=== PATIENT | female | born 1995 | race Two or more races ===

== ENCOUNTER 2023-03-16 07:02 | Outpatient (CLI) | payer BC, SELFPAY ==
--- NOTE | 2023-03-16 07:15 | CRLHL7_ITS ---
For Patients: As a result of the Century Cures Act, medical imaging exams and procedure reports are released immediately into your electronic medical record. You may view this report before your referring provider. If you have questions, please contact your health care provider. INDICATION: First trimester scan, establish dates. COMPARISON: None. TECHNIQUE: Real-time lopez-scale imaging of the pelvis was performed. FINDINGS: Sonographic imaging demonstrates a single living intrauterine gestation. The embryo demonstrates a regular cardiac rate measuring 126 beats per minute. The embryo`s crown-rump length measurement of 0.6 cm corresponds to a gestational age of 6 weeks 3 days with a sonographic due date of 11/06/2023. There is a normal-appearing yolk sac. There are no gross abnormalities noted within the embryo at this early state of development. The gestational sac has a normal appearance. There is no evidence of a perigestational hemorrhage. The amount of fluid within the sac appears appropriate for gestational age. The cervix is closed. The myometrium appears normal. Corpus luteal cyst right ovary. Nonvisualization left ovary. There are no suspicious fluid collections noted in the cul-de-sac. IMPRESSION: Single living intrauterine with sonographic gestational age 6 weeks 3 days and sonographic due date 11/06/2023. Dictated by Cody Lloyd MD @ 03/16/2023 2:06:01 PM (Electronically Signed)
== END 2023-03-16 07:03 | disposition home or self-care (01) ==
PROVIDERS: Visit Provider Physician Assistant
DX: Z34.91 Encounter for supervision of normal pregnancy, unspecified, first trimester (principal); Z3A.01 Less than 8 weeks gestation of pregnancy
CPT/HCPCS: 76817; 86592; 86703; 86762; 86787; 86803; 86850; 86900; 86901; 87086; 87340; 87491; 87591

== ENCOUNTER 2023-03-16 10:04 | Outpatient (CLI) | payer BC, SELFPAY ==
[2023-03-16 13:30] LABS: Chlamydia DNA Amplified* NOT DETECTED (No Detected); GC DNA Amplified* NOT DETECTED (No Detected)
== END 2023-03-16 10:05 | disposition home or self-care (01) ==
PROVIDERS: Visit Provider Physician Assistant
DX: Z34.91 Encounter for supervision of normal pregnancy, unspecified, first trimester (principal); Z3A.01 Less than 8 weeks gestation of pregnancy
CPT/HCPCS: 86592; 86703; 86762; 86787; 86803; 86850; 86900; 86901; 87086; 87340; 87491; 87591

== ENCOUNTER 2023-06-19 13:57 | Outpatient (CLI) | payer BC, SELFPAY ==
--- NOTE | 2023-06-19 14:00 | CRLHL7_ITS ---
For Patients: As a result of the Century Cures Act, medical imaging exams and procedure reports are released immediately into your electronic medical record. You may view this report before your referring provider. If you have questions, please contact your health care provider. INDICATION: Evaluate anatomy. COMPARISON: none TECHNIQUE: Real time lopez scale imaging of the fetus was performed as well as color Doppler analysis of the umbilical vessels. FINDINGS: Sonographic imaging demonstrates a single living intrauterine gestation. Fetus demonstrates a regular cardiac rate of 138 beats per minute. Fetus has a vertex position. The placenta lies along the right wall without evidence of placenta previa. The edge of the placenta is located 10.4 cm from the internal cervical os. Amniotic fluid volume appears normal. Single deepest vertical pocket: 5.0 cm. The cervix is closed and measures 3.9 cm in length. The composite ultrasound gestational age is calculated at 20 weeks 1 day with an estimated sonographic due date of 11/05/2023. The estimated weight is 326 grams which lies at the 45th %. The following biometric measurements were obtained: Biparietal diameter: 4.7 cm/20 weeks 2 days 61st% Head circumference: 17.4 cm/19 weeks 6 days 38th% Abdominal circumference: 15.0 cm/20 weeks 1 day 51st% Femur length: 3.1 cm/19 weeks 5 days 33rd% The HC/AC ratio measures: 1.16 range (1.07-1.25) On anatomic survey, there is a normal appearance of the cavum septi pellucidi, cisterna magna and cerebellum. Right choroid plexus cyst measuring 9 x 5 millimeters. The nose, lips, and facial profile appear normal. The cervical, thoracic and lumbar spine are well visualized and appear normal. There is a normal four-chamber heart view and the left and right ventricular outflow tracts appear normal. The diaphragm and stomach appear normal. Bilateral renal pelviectasis measuring 6.2 millimeters on the right and 5.6 millimeters on the left. Normal bladder. There is a normal three-vessel cord and cord insertion site. The four extremities appear normal. IMPRESSION: Right choroid plexus cyst measuring 9 x 5 millimeters. Bilateral renal pelviectasis measuring 6.2 millimeters on the right and 5.6 millimeters on the left. Remainder of the anatomic survey normal. Level 2 ultrasound recommended. Sonographic gestational age 20 weeks 1 day and sonographic due date 11/05/2023. Good correlation with dates. Estimated weight 45th percentile. Abdominal circumference 51st percentile. Dictated by Cody Lloyd MD @ 06/20/2023 10:37:31 AM (Electronically Signed)
== END 2023-06-19 13:58 | disposition home or self-care (01) ==
LOC: US 14:00
PROVIDERS: Visit Provider Obstetrics & Gynecology
DX: Z34.92 Encounter for supervision of normal pregnancy, unspecified, second trimester (principal); O35.03X0 Maternal care for (suspected) central nervous system malformation or damage in fetus, choroid plexus cysts, not applicable or unspecified; Z3A.20 20 weeks gestation of pregnancy
CPT/HCPCS: 76805

== ENCOUNTER 2023-08-17 15:01 | Outpatient (CLI) | payer BC, SELFPAY | END 2023-08-17 15:02 | disposition home or self-care (01) | LOC: NFLDREF 08-21 03:17 | PROVIDERS: Visit Provider Advanced Practice Midwife | DX: Z34.91 Encounter for supervision of normal pregnancy, unspecified, first trimester (principal) | CPT/HCPCS: 86592 ==

== ENCOUNTER 2023-10-10 18:12 | Outpatient (CLI) | payer BC, SELFPAY ==
[2023-10-11 15:23] LABS: Strep B DNA Probe Negative (Negative)
[2023-10-11 15:24] LABS: Strep B Susceptibility Needed? No
--- NOTE | 2023-11-06 21:39 | PC.NURSE ---
Center telephone call greater than 37 weeks Date of call: [11/06/23] Time of call: [2144] Name of person calling: [Adalgisa and SO] Best phone # to reach you at: [[phone]] patient: G: [1] P: [0] EDC: [11/06/23] Gestational age: [40.0] weeks Provider: [Cas Byrne CNM] Reason for calling (patient's words): [My water broke, I am not brayden yet. I am GBS negative.] Declines bleeding. Endorses movement. Fluid was clear. Evelyn Byrne next to scientific technical writer while taking phone call. Per Chavez, pt can stay home for 12 hours post SROM since she is GBS negative. Pt instructed to call and come in if vaginal bleeding or decreased movement. Advised patient on labor coping at home and instructed patient to call and come in when contractions are q 5 min for 1 hour or sooner. Patient aware she is welcome to come in at anytime overnight. Instructed patient to call 11/07/23 at 0700 if she does not come in overnight to update the unit on her status of labor and make a plan. If patient is calling with the following complaints, instructed to come to Center for evaluation: Feels like water broke: [Y] Regular contractions that are 5 min apart: [N] Bleeding that is bright red and similar to a menstrual period: [N] Decreased movement: [N] Temp >100.4: [NN] Patient has a sense that something doesn't feel right: [] Is patient having contractions: [N] Reviewed Signs of Labor: Uterine tightening or cramping that occurs at regular intervals. These typically occur at shorter and shorter intervals and may increase in intensity with time. Unlike [place] contractions, changes in activity should not make these symptoms go away. With true labor, the time between contractions will gradually shorten and the intensity gradually increases. Typical recommendation is coming to the hospital when contractions occur every 5 minutes or less and last for 60 seconds or more for 1 hour. If patient chooses to stay home, patient given comfort instructions and informed if symptoms stay the same or are worse after 1 hour come to Center. Comfort measures: Lie on left side, reset, drink bottle or large cup of water, monitor contractions for 1 hour. Patient verbalized understanding?: [Y] Is patient coming for evaluation?: [N] Telephone conversation guided by approved policy and flow chart, Telephone Calls From Patient's, approved at [facility] perinatology Committee May 2023.
== END 2023-10-10 18:13 | disposition home or self-care (01) ==
LOC: NFLDREF 18:12
PROVIDERS: PCP Advanced Practice Midwife; Visit Provider Advanced Practice Midwife
DX: Z34.03 Encounter for supervision of normal first pregnancy, third trimester (principal); Z3A.36 36 weeks gestation of pregnancy
CPT/HCPCS: 87081; 87653

== ENCOUNTER 2023-11-07 05:35 | Inpatient (IN) | payer BC, SELFPAY ==
[2023-11-07] VITALS (21 sets, daily range): BP systolic 123–133; BP diastolic 60–81; PULSE 65–80; RESP 16–17; TEMP 36.6–37; O2SAT 99; BMI 42.7
--- NOTE | 2023-11-07 05:08 | PM.OBLDTN ---
OB - Triage/Final Diagnosis Visit Information Time Seen by Provider: 05:09 Date Seen: 11/07/23 Narrative: The patient is a 28 year old 1 para 0 at 40.1 weeks gestation by , who presents with . Evaluation Vital signs: Vital Signs - 24 hr 11/07/23 04:17 11/07/23 04:18 Pulse Rate 67 Blood Pressure 129/81 Pulse Oximetry 99 Fetus (Infant B) Heart Rate Baseline: 155
[2023-11-07 05:36] LABS: Amnisure Rom* POSITIVE
--- NOTE | 2023-11-07 06:02 | P.LDBA_ITS ---
Documented by User: Evelyn Byrne CNM 11/07/23 07:42 Subjective History of Present Illness Narrative: Patient is being admitted to Labor and Delivery for []. She is a 28 year old at weeks gestation. Her full history and physical was dictated by [] on []. Please see this for details. [] Specific Issues/Plans G1 Pronounced No-sheryl H&P done by Sumit Eller CNM on 10/17/23 1. Obesity, pre BMI 37.3 Aspirin 81 mg Consider BPP/NST starting at 37 weeks, declined at this time 2. History of genital herpes is on suppressive Valtrex 500 daily. Increase to treatment dose at 36 weeks, script sent 3. History of abnormal Paps. Reports last Pap 09/30/2022: [facility]. 2020: [facility] .Reports paps have been abnormal since 2013. Transferred records show paps in 2017 and 2018, both [facility]. No report of colposcopy. Pap with HPV 04/21/23: NIL, HPV positive, not 16 or 18 subtypes. Colposcopy 05/17/23: suspect metaplasia. Repeat pap with HPV testing . 4. Bilateral urinary tract dilation, RESOLVED 09/12/2023 right 4.4mm, left 4.3mm, Level II US repeat US at 32 weeks: EFW 46%ile, UTD resolved, succenturiate lobe noted 5. Non immune rubella status MMR 6. Bi-loped (Succenturiate) reported from [facility] 09/12/2023 Right lateral per notes Flu: Declines Covid booster: declines RSV: 09/14 TDAP:09/01 OB - Problem Based A/P Additional Plan (1) PROM (premature rupture of membranes): Status: Acute (2) Bilobate placenta, antepartum: Status: Acute (3) pyelectasis: Problem details: Bilateral Status: Acute Plan ASSESSMENT:? 28 yr old at 40.1 weeks gestation? complicated by:? pyelectasis, resolve; rubella non-immune, hx of genital herpes on suppression, obesity Labor type:Spontaneous, Early labor? Category 1 FHR pattern.?? Labor complicated by: PROM, bilobed placenta ? GBS negative ? PLAN:? 1. Routine intrapartum cares as ordered. Continue with expectant management. Reviewed option of augmentation with pitocin or cytotec versus expectant management until 12 hours, then reassess. Reviewed risks/benefits of these options. Questions answered. 2. Monitoring per policy, continuous or intermittent? 3. Planning unmedicated . Desires water . Consent signed. Hep C negative. Candidate for analgesia of choice.?? 4. Patient encouraged to reposition and ambulate to promote physiologic labor and .? 5. Anticipate ? I,?Evelyn Byrne APRN, CNM, was present for visit and have reviewed and agree with documentation by the Certified Nurse Midwifery Student. OB Exam Physical Exam Vital signs: Pulse BP Pulse Ox 67 129/81 99 11/07/23 04:18 11/07/23 04:18 11/07/23 04:17 Narrative: Vitals Reviewed Constitutional:? Alert and oriented x3 HEENT:? Normocephalic, atraumatic Neck:? Supple Lungs:? Clear to auscultation bilaterally Heart:? Regular rate and rhythm, no murmur, rub or gallop Abdomen:? Soft, nontender, and gravid. Vertex by Michael's, confirmed with cervical exam. Extremities:? No edema or erythema Cervix: 2 cm/70%/-3 station/vertex NST: 120 bpm/minimal to moderate variability/15x15 accelerations/absent decelerations/contractions every 1-4 minutes Detailed Labor and Delivery Exam Patient Gravid: Yes Documented by User: Jodie Lorenzana 11/07/23 07:16 Subjective History of Present Illness Narrative: Patient is being admitted to Labor and Delivery for spontaneous rupture of membr ane at home on 11/06/2020 @ 2145. She is a 28 year old at 40.1 weeks gestation. Her full history and physical was dictated by Sumit Llanos CNM on 10/17/2023. Please see this for details. Pt called labor and delivery earlier to report of her rupture and felt comfortable staying at home till she started to feel regular painful contraction. At 0400 this morning pt called to report she was coming in to be evaluated for slowly increasing contractions. On admission, She had copious leakage of clear fluid. AMNISURE was collected to confirm rupture of membrane. Her contractions were 1-4 min apart on TOCO and palpated mild. FHT were minimal, with acceleration noted only during vaginal exam. FHT - reactive after intake of juice and food. She denied vaginal bleeding and decreased movements. GBS negative and plans on having water . Pt made an informed choice for 12 hours of expectant management before labor augmentation. Specific Issues/Plans G1 Pronounced No-sheryl H&P done by Sumit Eller CNM on 10/17/23 1. Obesity, pre BMI 37.3 Aspirin 81 mg Consider BPP/NST starting at 37 weeks, declined at this time 2. History of genital herpes is on suppressive Valtrex 500 daily. Increase to treatment dose at 36 weeks, script sent 3. History of abnormal Paps. Reports last Pap 09/30/2022: [facility]. 2020: [facility] .Re ports paps have been abnormal since 2014. Transferred records show paps in 2017 and 2019, both [facility]. No report of colposcopy. Pap with HPV 04/21/23: NIL, HPV positive, not 16 or 18 subtypes. Colposcopy 05/17/23: suspect metaplasia. Repeat pap with HPV testing . 4. Bilateral urinary tract dilation, RESOLVED 09/12/2023 right 4.4mm, left 4.3mm, Level II US repeat US at 32 weeks: EFW 46%ile, UTD resolved, succenturiate lobe noted 5. Non immune rubella status MMR 6. Bi-loped (Succenturiate) reported from [facility] 09/12/2023 Right lateral per notes Flu: Declines Covid booster: declines RSV: 09/14 TDAP:09/01 OB - Problem Based A/P Additional Plan (1) PROM (premature rupture of membranes): Status: Acute (2) Bilobate placenta, antepartum: Status: Acute (3) pyelectasis: Problem details: Bilateral Status: Acute Plan ASSESSMENT:? 28 yr old at 40.1 weeks gestation? complicated by:? pyelectasis Labor type:Spontaneous, Early labor? Category 1 FHR pattern.?? Labor complicated by: ? GBS negative ? PLAN:? 1. Routine intrapartum cares as ordered. Continue with expectant management? 2. Monitoring per policy, continuous or intermittent? 3. Planning unmedicated . Desires water . Consent signed. Hep C negative. Candidate for analgesia of choice.?? 4. Patient encouraged to reposition and ambulate to promote physiologic labor and .? 5. Anticipate ? Delivery/Labor/Induction Plan Plan: expectant management OB Exam Fetus (Single) Amniotic Membrane Status: SROM Amniotic Membrane Fluid Description: Clear
--- NOTE | 2023-11-07 08:29 | PM.OBPNL ---
Subjective Date Seen: 11/07/23 Narrative: ?Adalgisa is coping well with labor pain/contractions. ?Her partner is with her for support. ?She would like to continue with breathing, repositioning and distraction for comfort and pain management. She reports SROM last evening at 2114, coming up on 12 hours of ROM. She feels her current contraction pattern is about every 3 minutes and she is breathing through them. Reviewed expectant management vs intervention around 12 hours post ROM. She would like to continue with expectant management at this time. Will consider augmentation if contractions space out or stop. ? Objective Exam: VSS, afebrile General Appearance:? Calm, cooperative. ?No acute distress. ? Psychiatric Exam: Alert and oriented, appropriate affect Abdomen: Gravid Ctx: ?Q 3 min apart per pt report and observation. ? ?Moderate ? FHTs: intermittently monitored 122 with increases and no decreases heard with last check. SVE: deferred at this time Membranes: ?SROM X 11 hours Vital Signs: Last Vital Signs Temp 98.2 F 11/07/23 08:20 Pulse 67 11/07/23 04:18 Resp 17 11/07/23 08:20 BP 129/81 11/07/23 04:18 Pulse Ox 99 11/07/23 04:17 Assessment Station: -2 Monitor Accelerations: Episodic Monitor Decelerations: Prolonged Plan Plan: Assessment:?? at 40.1 gestation?? GBS negative Patient is coping well with challenges of labor.?? Labor type: Spontaneous, Early labor? Intermittent monitoring ? complicated by: pyelectasis, resolve; rubella non-immune, hx of genital herpes on suppression, obesity Labor complicated by: PROM, bilobed placenta Plan:?? Continue with routine intrapartum cares as ordered.?? Patient encouraged to move and change positions to promote physiologic labor and .?? Nonpharmacologic comfort measures per patient preference. Candidate for analgesia of choice if desired. Patient planning waterbirth Anticipate progress to NVD. ?
--- NOTE | 2023-11-07 14:48 | P.OBPN_ITS ---
Subjective Time Seen by Provider: 12:30 Date Seen: 11/07/23 Narrative: ?Adalgisa is coping well with labor pain/contractions. ?Rex is with her for support. ?She would like to continue with breathing, repositioning and relaxation for comfort and pain management.?She feels her contractions have gotten stronger since this morning. Cervical exam shows slow change, she continues to leak clear fluid. Objective Exam: VSS, afebrile General Appearance:? Calm, cooperative. ?No acute distress. ? Psychiatric Exam: Alert and oriented, appropriate affect Abdomen: Gravid Ctx: ?Q 3 min apart. ? ?Moderate ? FHTs: ?Intermittent monitored 120's, no audible decelerations heard SVE: 3/70%/-2 Membranes: ? Vital Signs: Last Vital Signs Temp 98.4 F 11/07/23 13:25 Pulse 71 11/07/23 14:26 Resp 16 11/07/23 13:25 BP 123/62 11/07/23 14:26 Pulse Ox 99 11/07/23 04:17 Assessment Assessment: early labor Station: -2 Amniotic Membrane Status: SROM Plan Plan: Assessment:?? at 40.1 gestation?? GBS neg Patient is coping well with challenges of labor.?? Labor type: Spontaneous, Early labor? Intermittent monitoring of FHR, 120;s not audible decelerations heard complicated by: pyelectasis, resolve; rubella non-immune, hx of genital herpes on suppression, obesity Labor complicated by: PROM, bilobed placenta Plan:?? Continue with routine intrapartum cares as ordered.?? Patient encouraged to move and change positions to promote physiologic labor and .?? Nonpharmacologic comfort measures per patient preference. Candidate for analgesi a of choice if desired. Patient planning waterbirth Anticipate progress to NVD. ?
--- NOTE | 2023-11-07 15:39 | P.OBPN_ITS ---
Subjective Date Seen: 11/07/23 Narrative: ?Adalgisa is coping well with labor pain/contractions. ?Rex is with her for support. ?She would like to continue with repositioning, breathing and relaxation for comfort and pain management. Adalgisa requested a vaginal exam to check on her progress, she reports contractions continue to increase in intensity. Her cervix remains unchanged but the fetus is now at 0 station. Discussed with her possibility of waiting longer, adding Cytotec or IV Pitocin for augmentation. Risks, benefits and alternatives reviewed. She would like to continue with expectant management at this time. ? Objective Exam: VSS, afebrile General Appearance:? Calm, cooperative. ?No acute distress. ? Psychiatric Exam: Alert and oriented, appropriate affect Abdomen: Gravid Ctx: ?Q 3-4 min apart. ? ?Moderate ? FHTs: ?intermittent monitoring, FHR 120's SVE: 3/70%/0 Membranes: ?SROM ? X 18 hours Vital Signs: Last Vital Signs Temp 98.4 F 11/07/23 15:25 Pulse 71 11/07/23 14:26 Resp 16 11/07/23 15:25 BP 123/62 11/07/23 14:26 Pulse Ox 99 11/07/23 04:17 Assessment Station: 0 Amniotic Membrane Status: SROM Plan Plan: Assessment:?? at 40.1 gestation?? GBS neg Patient is coping well with challenges of labor.?? Labor type: Spontaneous, Early labor? Intermittent FHR monitoring reassuring, no audible decelerations heard complicated by: pyelectasis, resolve; rubella non-immune, hx of genital herpes on suppression, obesity Labor complicated by: PROM, bilobed placenta Plan:?? Reevaluate in a few hours, expectant management for now. Continue with routine intrapartum cares as ordered.?? Patient encouraged to move and change positions to promote physiologic labor and .?? Nonpharmacologic comfort measures per patient preference. Candidate for lucian lgesia of choice if desired. Patient planning waterbirth Anticipate progress to NVD. ?
--- NOTE | 2023-11-07 20:47 | PM.OBPNL ---
Subjective Date Seen: 11/07/23 Narrative: ?Adalgisa is coping well with labor pain/contractions. ?Rex is with her for support. ?She would like to continue with repositioning, breathing and relaxation for comfort and pain management. She has made slow change throughout the day. Is currently brayden approximately every 3-4 minutes and breathing through them. She would like to continue expectant management and plans to get in the shower soon for her pain with contractions. ? Objective Exam: VSS, afebrile General Appearance:? Calm, cooperative. ?No acute distress. ? Psychiatric Exam: Alert and oriented, appropriate affect Abdomen: Gravid Ctx: ?Q 3-4 min apart. ? ?Moderate ? FHTs: ?Intermittently monitored in 120's with no audible decelerations heard SVE: 4/70%/0 Membranes: ?SROM ? X 24 hours Vital Signs: Last Vital Signs Temp 98.4 F 11/07/23 20:35 Pulse 65 11/07/23 18:29 Resp 16 11/07/23 20:35 BP 130/75 11/07/23 18:29 Pulse Ox 99 11/07/23 04:17 Assessment Station: 0 Amniotic Membrane Status: SROM Plan Plan: Assessment:?? at 40.1 gestation?? GBS neg Patient is coping well with challenges of labor.?? Labor type: Spontaneous, Early labor? Intermittent FHR monitoring reassuring, no audible decelerations heard complicated by: pyelectasis, resolve; rubella non-immune, hx of genital herpes on suppression, obesity Labor complicated by: PROM, bilobed placenta Plan:?? Continue with expectant management. Continue with routine intrapartum cares as ordered.?? Patient encouraged to move and change positions to promote physiologic labor and .?? Nonpharmacologic comfort measures per patient preference. Candidate for analgesia of choice if desired. Patient planning waterbirth Anticipate progress to NVD. ? ?
[2023-11-08] VITALS (15 sets, daily range): BP systolic 101–130; BP diastolic 56–83; PULSE 73–96; RESP 16–18; TEMP 36.8–37.1; O2SAT 95–98
--- NOTE | 2023-11-08 01:28 | P.OBPN_ITS ---
Subjective Date Seen: 11/08/23 Narrative: Adalgisa is coping well with labor pain/contractions. ?Rex is with her for support. ?She would like to continue with breathing, repositioning and relaxation for comfort and pain management. She is brayden approximately every 2-3 minutes and SVE shows she is 8cm/100%/+1. Planning to get into the Waterbirth tub at this time. ? Objective Exam: VSS, afebrile General Appearance:? Calm, cooperative. ?No acute distress. ? Psychiatric Exam: Alert and oriented, appropriate affect Abdomen: Gravid Ctx: ?Q 2-3 min apart. ? ?Strong FHTs: ?intermittently monitored, FHR 120's no audible decelerations SVE: 100/+! Membranes: ?SROM ?28 hours Vital Signs: Last Vital Signs Temp 98.7 F 11/08/23 00:30 Pulse 72 11/07/23 22:36 Resp 16 11/08/23 00:30 BP 133/60 11/07/23 22:36 Pulse Ox 99 11/07/23 04:17 Assessment Assessment: active labor Station: +1 Amniotic Membrane Status: SROM Plan Plan: Assessment:?? at 40.2 gestation?? GBS neg Patient is coping well with challenges of labor.?? Labor type: Spontaneous, Active labor? Intermittent FHR monitoring reassuring, no audible decelerations heard complicated by: pyelectasis, resolve; rubella non-immune, hx of genital herpes on suppression, obesity Labor complicated by: PROM, bilobed placenta Plan:?? Pt tp enter waterbirth tub at this time Continue with routine intrapartum cares as ordered.?? Patient encouraged to move and change positions to promote physiologic labor and .?? Nonpharmacologic comfort measures per patient preference. Candidate for an algesia of choice if desired. Anticipate progress to NVD. ?
[2023-11-08] MEDS: OXYTOCIN 10 UNIT/ML INJ IM (03:40)
--- NOTE | 2023-11-08 03:57 | W.PM.VAGDE_ITS ---
OB Procedure Vag Delivery Mother Details Mother Details: The patient is a 28 year-old, 1, Para 0, admitted on 11/07/23 at 40.1 weeks gestation with SROM of clear fluid. : 1 Para: 1 Weeks Gestation: 40.2 Admission Date: 11/07/23 Additional Details Amniotic Membrane Status: SROM Amniotic Membrane Rupture Date: 11/07/23 Amniotic Membrane Rupture Time: 21:15 Amniotic Membrane Fluid Description: Clear Analgesia/Anesthesia Type: None Waterbirth: Yes Pitcoin: Yes (AMTSL) Intrapartal Events: None Labor Onset: 12:12 Complete: 02:45 Pushin:45 Heart: heart tones during second stage were intermittently monitored, FHR 120's no audible decelerations heard. Delivery Details Delivery Date: 11/08/23 Delivery Time: 03:26 Route of delivery: Infant Gender: Male Infant Viability: Alive; Heart Rate Present Position at Delivery: OA Delivery Details: 28y.o?at 40.2 weeks.? Adalgisa arrived to the center with SROM of clear fluid on 11/07/23 at 2115. She began brayden and made cervical change at 1212, she labored in multiple positions and used breathing and repositioning for pain managment. At 0116 she was examined and found to be 8cm. She entered the water tub not long after that. She was assumed complete with pushing at 0245 and delivered a male infant over intact perineum at 0326. There was a nuchal cord times one, delivered through. ? She became complete at 0245.??She pushed in semi-fowlers positions effectively.? Spontaneous vaginal delivery at 0326 of?a viable?male .??Delivered in vertex OA position.??Shoulders delivered easily.? Spontaneous cry noted.?? placed on maternal abdomen.??Cord?was clamped and cut after a 5+ minute delay.??Nose and mouth were bulb suctioned.? Shoulder dystocia: no? Nuchal cord: yes times one, delivered through? Meconium stained?fluid: no? Water : yes? ? ? 6 at 1 minute and 9 at 5 minutes.? ? Placenta delivered spontaneously and?complete?at 0342 with a?3 vessel?cord.??Placenta noted to be bilobed, known before delivery. Bleeding controlled with fundal massage and?pitocin?for AMTSL.? ? Mother and infant were stable after delivery.? ? Lacerations:? intact ? Bleeding?post delivery?was: moderate, slowed with IM pitocin and fundal massage. ?The fundus was firm to palpation.? Blood loss: 400?mL.? Blood loss measurement type: QBL? ? ? Sponge,?lap?and needles counts are correct.? Mother and were stable after delivery.? 1 Minute Interval Total Score: 6 5 Minute Interval Total Score: 9 Additional Details Shoulder Dystocia: No Placenta Delivery Time: 03:42 Placental Delivery Description: Spontaneous Procedure Done: Global Blood Loss: 400 Laceration: None Blood Loss Measurement Type: QBL Bakri Used: No Sponge/Need Count Correct: Yes Cord Vessel Description: 3 Vessels, Nuchal Cord, Loose and Delivered thro ugh Event Summary Status: Mother and were stable after delivery. Disposition: floor
--- NOTE | 2023-11-09 08:22 | PM.OBDSVD1 ---
DS: Providers Provider Date Seen: 11/09/23 Date of admission: 11/07/23 05:35 Primary care physician: Not a Local Provider Admitting Clinician: Evelyn Byrne CNM Attending Physician on discharge: Evelyn Byrne CNM DS: Diagnosis Discharge Diagnosis (1) care and examination immediately after delivery: Status: Acute (2) Lactating mother: Status: Acute Exam Narrative: Exam Narrative: GENERAL APPEARANCE:? normal affect, alert, no distress MOOD:? appropriate CHEST:? clear to auscultation HEART:? regular rate and rhythm ABDOMEN:? soft, non-tender the uterine fundus is at Umbilicus, Midline and is appropriate for the stage of recovery. PERINEUM:? mild edema of the perineum. EXTREMITIES:? normal and no edema Const: Vital Signs, click to edit/add: Vital Signs - 24 hr 11/08/23 14:15 11/08/23 17:45 11/08/23 20:40 Temperature 98.6 F 98.7 F Pulse Rate [Left R adial] 96 96 Respiratory Rate 17 16 16 Blood Pressure [Le ft Arm] 120/76 121/75 120/83 Pulse Oximetry 98 97 97 Oxygen Delivery Me thod Room Air Room Air Room Air 11/08/23 23:51 Temperature 98.8 F Pulse Rate [Left R adial] 73 Respiratory Rate 16 Blood Pressure [Le ft Arm] 122/76 Pulse Oximetry 98 Oxygen Delivery Me thod Room Air OB - DS: Summary Hospital Course Hospital Course: Adalgisa is a 28 y.o. G 1 P 0 who was admitted to [facility] for spontaneous onset of labor. ?She had a NVD that was uncomplicated. The patient feels well. ?The pain is well controlled with current medications. ?She has no new complaints. ?She is breast feeding and reports things are going well. the patient has done well.? Vitals have been stable.? She has remained afebrile.? Has a good appetite, is tolerating a general diet. ?She is voiding without difficulty.? She is passing gas and has not had a bowel movement.? She is ambulating and denies any dizziness.? Has small amount of rubra lochia. She is planning IUD for prevention. Problems: none plan: Discharge home with baby. Follow up in 2 weeks and 6 weeks. , may see if needed Peripartum Data delivery method: Vaginal Laceration description: None complications: none Gender: Male Discharge Plan: Home Status at Discharge Functional status at discharge: independent ambulation Overall status at discharge: patient is progressing back to baseline Time Spent with Patient Time attestation: Total time spent providing and/or coordinating discharge services: Time spent: Less than 30 minutes Discharge Plan Discharge Disposition: Home, Self-Care Date of Admission: 11/07/23 05:35 Attending Provider on Discharge: Evelyn Byrne Primary Care Provider: Provider,Not a Local Condition: Stable Anticipated Discharge Date/Time: 11/09/23 12:00 Discharge Medications: New ibuprofen 600 mg Tablet 600 mg PO Q6H PRNQty: 60 0RF docusate sodium 100 mg Capsule 100 mg PO DAILY Qty: 0 0RF Continued DHA 200 mg capsule 200 mg PO DAILY acetaminophen [Tylenol Extra Strength] 500 mg tablet 1,000 mg PO Q6H PRN calcium carbonate [Tums] 200 mg calcium (500 mg) tablet,chewable 200 mg PO BID PRN Discontinued valacyclovir [Valtrex] 500 mg tablet 500 mg PO BID Qty: 60 1RF Discharge Orders: Discharge Order (Routine); Ordered 11/09/23 Ordered By: Evelyn Byrne Patient Education: OB Over the Counter Medication Information, OB Vaginal/Breast Feeding Additional Instructions: Discharge instructions were reviewed with the patient including signs and symptoms of infection and home going medications Nothing vaginally for 6 weeks: no tampons or intercourse Do not drive while taking narcotic pain medication(s) Off Work or School for 8 weeks 2-week visit: discuss infant feeding concerns, review control options and screen for anxiety/depression. 6-week visit for an annual exam. consultation services are available to all mothers and babies for the first year after delivery.? To make an appointment, please call [phone]. Activity Level: Activity as Tolerated Discharge Diet: Regular Follow Up Appointments: [facility] [Provider Group] Forms: [employer] Info Instructions
[2023-11-09 08:52] VITALS: BP 115/74; PULSE 78; RESP 16; TEMP 36.6; O2SAT 98
== END 2023-11-09 14:10 | disposition home or self-care (01) | DRG 560 ==
LOC: OB OUT 11-09 11:48
PROVIDERS: Admitting Provider Advanced Practice Midwife; Visit Provider Advanced Practice Midwife
DX: O43.193 Other malformation of placenta, third trimester (principal); O42.12 Full-term premature rupture of membranes, onset of labor more than 24 hours following rupture; O99.214 Obesity complicating childbirth; Z78.9 Other specified health status; Z87.42 Personal history of other diseases of the female genital tract; Z37.0 Single live birth; Z3A.40 40 weeks gestation of pregnancy; O98.32 Other infections with a predominantly sexual mode of transmission complicating childbirth; A60.09 Herpesviral infection of other urogenital tract
CPT/HCPCS: 84112; 86592; G0463; J2590

== ENCOUNTER 2023-11-14 14:41 | Outpatient (CLI) | payer BC, SELFPAY | END 2023-11-14 14:42 | disposition home or self-care (01) | PROVIDERS: Visit Provider Advanced Practice Midwife | DX: Z39.0 Encounter for care and examination of mother immediately after delivery (principal) | CPT/HCPCS: 82565; 84450; 84460 ==

== ENCOUNTER 2023-11-15 15:13 | Outpatient (CLI) | payer BC, SELFPAY ==
--- NOTE | 2023-11-15 17:00 | P.LACCB_ITS ---
Consult Note - Mom Date of Visit Date of visit: 11/15/23 supply chain consultant: Maddy Ogden Visit Code: Visit Patient's Information Phone number: [phone] : 2 Para: 1 Allergies No Known Drug Allergies Allergy (Verified 11/14/23 14:24) Mother's Medical History: Medical History (Updated 11/17/23 @ 00:01 by Background Daemon) Genital herpes ?A60.00 - Herpesviral infection of urogenital system, unspecified (ICD-10) Delivery Information Delivery type: Vaginal Weeks Gestation: 40.2 Gestational Age: AGA Weight: 3.18 kg Discharge Weight: 3.046 kg Baby's Information Baby's Age at Visit: 7 days Baby's Provider or Clinic: Dr. Holman Jaundice: Yes Reason for Consult Reason for Consult: slow weight gain Past Experience Past Experience: No Current Frequency of Day Feedings: about every 2 hours Frequency of Night Feedings: has started cluster feeding Both Breasts: Yes (mom offers) Suck: fairly strong Latch: fairly wide Length of Time: 10 - 40 minutes Pumping Pumping: Yes (BID) Quantity Pumped: 2 oz total each time Supplementing EMB Supplement: Yes (baby is supplemented with everything mom pumps) Formula Supplement: No Baby Elimination Number of Wet Diapers a Day: POC have stopped counting Number of BM a Day: 4 - 5, yellow and seedy Breast/Nipple Condition Breast Information: WNL Engorgement: No Maternal Nipple Condition - Left: Common Nipple (possibly elastc) Maternal Nipple Condition - Right: Common Nipple (possibly elastic) Sore Nipples: No Onsite Pre-Feed weight: 3.03 kg Post-Feed weight: 3.064 kg Milk Transferred (mL): 34 Assessments/Interventions Assessments/Interventions: Met with mom and this now 7 day old ex- term AGA baby for consult. Mom reports that initially baby was nursing about every two hours around the clock, but recently has started cluster feeding overnight. She offers both sides and nursing sessions are anywhere from 10 - 40 minutes long. She pumps BID and gets about 2 oz total each time. Dad offers an ounce of what mom pumps at four feedings/24 hours. She feels her milk came in on 11/11. Breasts WNL- symmetrical with rounded lower quadrants, intramammary distance is < 1.5 inches. Nipples are a little longer than normal (look like they could be elastic). They don't flatten or retract on compression, no damage noted. Baby has gained 22 grams/day since his last visit on 11/10 and is now 5% below BW at 7 DOL. Per POC he has equal ROM when turning his head and moving his extremities. They deny any caput/cephalohematoma at delivery. He's jaundiced to his chest. POC are concerned he may have an infection at the umbilicus d/t the smell. Umbilical stump is stinky but WNL, we reviewed s/s of infection. On examination of baby's mouth he has a strong suck on a finger but the tongue doesn't come over the gumline for the first several suckles. His palate is a little high, but the upper frenulum appears to be WNL. The tongue has some c anoeing and the lower frenulum wasn't visualized, posterior? Mom latched baby to the right side in the football hold and the latch looked fairly wide but mom was uncomfortable. When she was verbally coached to exaggerate pointing her nipple to baby's nose she was able to latch him on a little more deeply and was more comfortable. Baby nursed for about 20 minutes but needed a lot of stimulation to stay awake and actively suckle. Mom switched him to the left side and after a few attempts was able to latch him comfortably. He nursed about 10 sleepy minutes on this side before mom took him off. When he was weighed he transferred 34 ml. Mom was measured and flange size suggested, handout given. Dad was shown the tug of war exercise to hopefully strengthen his suck and teach him to extend his tongue over the gum line. Plan: 1. Mom will continue to nurse ALD or at least every three hours. Instructed her to practice the above idea to get the widest latch possible and to work at frederic ping him awake and actively suckling at the breast. 2. Dad will supplement with .5 - 1 oz after nursing sessions for now. 3. Encouraged mom to try pumping TID to help build her supply while baby is a little sleepy, and so dad can offer EBM instead of formula. 4. Dad will practice the tug of war with daytime diaper changes. 5. Baby will f/u on 11/21 for a 2 week pre and post feeding weight. He has a one month appointment with Peds in [place]. Meds Home Medications and Allergies Home Medications Medication Instructions Recorded Confirmed Type docosahexaenoic acid 200 mg 200 mg PO DAILY 03/16/23 11/14/23 History capsule ( DHA) acetaminophen 500 mg tablet 1,000 mg PO Q6H PRN 07/20/23 11/14/23 History (Tylenol Extra Strength) calcium carbonate 200 mg calcium 200 mg PO BID PRN 07/20/23 11/14/23 History (500 mg) chewable tablet (Tums) Allergies Allergy/AdvReac Type Severity Reaction Status Date / Time No Known Drug Allergies Allergy Verified 11/14/23 14:24
== END 2023-11-15 15:14 | disposition home or self-care (01) ==
PROVIDERS: Visit Provider Advanced Practice Midwife
DX: Z39.1 Encounter for care and examination of lactating mother (principal)
CPT/HCPCS: G0463